=== PATIENT | male | born 1995 | race Caucasian/White ===

== ENCOUNTER 2022-06-02 10:01 | Emergency (ER) | payer OTHER, SELFPAY ==
--- NOTE | ~2022-06-02 | XR_ITS ---
2 views of the right clavicle CLINICAL HISTORY: Fracture FINDINGS: No fracture or dislocation seen. Joint spaces are preserved. Soft tissues are unremarkable. IMPRESSION: No fracture identified. Reviewed, dictated and finalized at location . IMPRESSION: No fracture identified.
--- NOTE | ~2022-06-02 | XR_ITS ---
Right Shoulder Technique: AP and scapular Y views were obtained. Clinical History: Pain Findings: No fracture or dislocation is seen. Osseous alignment is anatomic. The glenohumeral and acr omioclavicular joint spaces are preserved. Soft tissues are unremarkable. Impression: Unremarkable right shoulder radiographs. Reviewed, dictated and finalized at [facility]. Impression: Unremarkable right shoulder radiographs.
[2022-06-02 10:05] VITALS: BP 143/93; PULSE 87; RESP 16; TEMP 36.8; O2SAT 96
--- NOTE | 2022-06-02 10:29 | ED.UPPEXIN ---
HPI - Extremity Injury (Upper) General Chief Complaint: Extremity Injury, Upper Stated Complaint: shoulder/arm pain Time Seen by Provider: 06/02/22 10:05 Source: patient Mode of arrival: ambulatory Limitations: no limitations History of Present Illness HPI narrative: This is a 26-year-old male with no significant past medical history was some rough housing with a nephew last night and inadvertently fell on to his right shoulder, had a few drinks and went to bed, woke up and rolled over and felt pain in his right shoulder. Has limited range of motion there is no numbness or tingling and there is some tenderness in the bicipital area with palpation. complaint: injury to: right Onset (ago): day(s) Other injuries: none Handedness: right Severity: moderate Severity scale (1-10): 7 Relieving factors: immobilization Exacerbating factors: movement of extremity Context: fall Associated symptoms: denies other symptoms Related Data Allergies Allergy/AdvReac Type Severity Reaction Status Date / Time amoxicillin [From Augmentin] Allergy Hives Verified 06/02/22 10:05 clavulanic acid Allergy Hives Verified 06/02/22 10:05 [From Augmentin] Review of Systems Review of Systems: All systems reviewed & are unremarkable except as noted in HPI and below PMFSH Past Medical History Medical History Patient denies medical problems Exam Const: General: healthy appearing Orientation/consciousness: patient oriented x3 Limitations: no limitations HENMT: Head: normal to inspection Eyes: Conjunctivae: conjunctivae normal Chest: Chest palpation & inspection: normal inspection of the chest Resp: Effort & Inspection: normal respiratory effort Auscultation: clear to auscultation bilaterally Cardio: Rate: regular rate Rhythm: regular rhythm GI: GI Palp: Yes Soft to palpation Skin: General skin exam: normal color Rashes: no rashes Wounds: no wounds Neuro: General: patient oriented x3 and moves all extremities Extrem: Other: has limited rated motion the right shoulder with active and passive movement secondary to pain, there is no numbness or tingling and does have tenderness in the bicipital groove palpation of the right shoulder. Psych: Mental Status: mental status grossly normal Affect: normal affect Attitude: cooperative Course Course Emergency Course: Patient received IM Toradol 60mg and pain normal has improved, x-ray reviewed with patient, x-ray showed a mid nondisplaced clavicle fracture. Vital Signs Vital signs: Vital Signs Temperature 36.8 C 06/02/22 10:05 Pulse Rate 87 06/02/22 10:05 Respiratory Rate 16 06/02/22 10:05 Blood Pressure 143/93 H 06/02/22 10:05 Pulse Oximetry 96 06/02/22 10:05 Oxygen Delivery Room Air 06/02/22 10:05 Temperature 36.8 C 06/02/22 10:05 Pulse Rate 87 06/02/22 10:05 Respiratory Rate 16 06/02/22 10:05 Blood Pressure 143/93 H 06/02/22 10:05 Pulse Oximetry 96 06/02/22 10:05 Oxygen Delivery Room Air 06/02/22 10:05 Discharge Plan Discharge Clinical Impression: Fracture of clavicle Qualifiers: Encounter type: initial encounter Clavicle location: unspecified part of clavicle Fracture type: closed Fracture alignment: nondisplaced Laterality: right Qualified Code(s): S42.001A - Fracture of unspecified part of right clavicle, initial encounter for closed fracture Patient Disposition: Home, Self-Care Condition: Stable Instructions: Antibiotic Form, Clavicle Fracture (ED), How to Use a Sling (ED) Additional Instructions: advised to follow-up with primary within 1 week further evaluation and treatment take medicine as prescribed. Prescriptions: New oxycodone-acetaminophen [Percocet] 5-325 mg tablet 1 tablet PO Q6H PRN (Reason: pain) Qty: 14 0RF Follow-up/Referrals: UNKNOWN,DOCTOR [Primary Care Provider] - Time of Disposition: 11:43
[2022-06-02] MEDS: KETOROLAC (*BKC) 60 MG/2 ML VIAL IM (10:37)
[2022-06-02] MEDS: MORPHINE SULFATE (*CRX) 4 MG/ML INJ IM (11:06)
[2022-06-02 11:25] VITALS: BP 136/89; PULSE 62; RESP 16; TEMP 35.9; O2SAT 96
== END 2022-06-02 11:47 | disposition home or self-care (01) ==
PROVIDERS: Emergency Provider Emergency Medicine
DX: S42.024A Nondisplaced fracture of shaft of right clavicle, initial encounter for closed fracture (principal); W19.XXXA Unspecified fall, initial encounter
CPT/HCPCS: 73000; 73030; 96372; 99283; A4565; J1885; J2270

== ENCOUNTER 2022-08-19 13:38 | Emergency (ER) | payer OTHER, SELFPAY ==
[2022-08-19 13:38] VITALS: BP 144/91; PULSE 103; RESP 18; TEMP 35.9; O2SAT 95
--- NOTE | 2022-08-19 14:37 | ED.NAVMDI ---
HPI - Nausea/Vomiting/Diarrhea General Chief complaint: Nausea/Vomiting/Diarrhea Stated complaint: vomiting and shaky Source: patient Mode of arrival: ambulatory Limitations: no limitations History of Present Illness HPI Narrative: 26-year-old male with a history of marijuana use presents to the ER with a 1 day history of -- nausea and vomiting. 2 episodes of vomiting today. No abdominal pain. No fever. Is skip work today and he needs a note for work elicited complaint: nausea and vomiting Pertinent past history: anorexia Onset (ago): day(s) ( started 1 day ago) Description of vomiting: watery Associated nausea: Yes Associated abdominal pain: No Location of pain: none Exacerbating factors: none Relieving factors: none Related Data Allergies Allergy/AdvReac Type Severity Reaction Status Date / Time amoxicillin [From Augmentin] Allergy Hives Verified 08/19/22 13:46 clavulanic acid Allergy Hives Verified 08/19/22 13:46 [From Augmentin] Review of Systems Constitutional: Constitutional: Reports as per HPI and Reports no additional constitutional complaints Eyes: Eyes: Reports as per HPI and Reports no additional eye complaints ENT: Reports system reviewed and no additional complaints, except as documented and Reports as per HPI Cardiovascular: Cardiovascular: Reports as per HPI and Reports no additional cardiovascular complaints Respiratory: Respiratory: Reports as per HPI and Reports no additional respiratory complaints Gastrointestinal: Gastrointestinal: Reports as per HPI, Reports no additional gastrointestinal complaints, Reports nausea and Reports vomiting Genitourinary: Genitourinary: Reports no additional male genitourinary complaints and Reports as per HPI Musculoskeletal: Musculoskeletal: Reports no additional musculoskeletal complaints and Reports as per HPI Integumentary/Breasts: Skin/Breast: Reports system reviewed and no additional complaints, except as docu and Reports as per HPI Neurologic: Reports system reviewed and no additional complaints, except as documented and Reports as per HPI Psychiatric: Psychiatric: Reports no additional psychiatric complaints and Reports as per HPI Endocrine: Endocrine: Reports no additional endocrine complaints and Reports as per HPI Hematologic/Lymphatic: Hematologic/Lymphatic: Reports no additional hematologic/lymphatic complaints and Reports as per HPI Allergic/Immunologic: Allergic/Immunologic: Reports no additional allergic/immunologic complaints and Reports as per HPI PMFSH Past Medical History Medical History Patient denies medical problems Exam Const: General: healthy appearing Nutritional Appearance: well nourished Orientation/consciousness: patient oriented x3 Limitations: no limitations HENMT: Head: normal to inspection Ears: external ears normal Face/Nose/Sinus: Normal external nose present Face and sinus: normal facial exam Mouth: Yes Normal oral and palatal mucosa present Throat: posterior oropharynx normal Eyes: Conjunctivae: conjunctivae normal Cornea: corneas normal Pupils: Equal, round and reactive pupils present EOM: EOMs intact bilaterally Direct Ophthalmoscopy: no photophobia Neck: Neck: normal visual inspection, no lymphadenopathy and no meningeal signs Chest: Chest palpation & inspection: normal inspection of the chest Resp: Effort & Inspection: normal respiratory effort Auscultation: clear to auscultation bilaterally Cardio: Rate: regular rate Rhythm: regular rhythm GI: GI Palp: Yes Soft to palpation Auscultation: normal bowel sounds Other: no tenderness/rigidity/rebound : General: Yes no CVA tenderness Back/Spine/Pelvis: Back: no CVA tenderness Skin: General skin exam: normal color Rashes: no rashes Wounds: no wounds Neuro: General: patient oriented x3, moves all extremities, no meningeal signs, no focal motor deficits and CN's II-XI int
[2022-08-19] MEDS: PROCHLORPERAZINE EDISYLATE 10 MG/2 ML VIAL IM (14:58)
[2022-08-19 15:12] VITALS: BP 144/95; PULSE 88; RESP 18; O2SAT 100
== END 2022-08-19 15:12 | disposition home or self-care (01) ==
PROVIDERS: Emergency Provider Internal Medicine Critical Care Medicine
DX: R11.2 Nausea with vomiting, unspecified (principal)
CPT/HCPCS: 96372; 99283; J0780

== ENCOUNTER 2022-09-09 10:41 | Emergency (ER) | payer OTHER, SELFPAY ==
[2022-09-09 10:43] VITALS: BP 151/94; PULSE 93; RESP 20; TEMP 36.7; O2SAT 95
[2022-09-09 10:46] VITALS: BP 151/84; PULSE 93; RESP 18; TEMP 36.7; O2SAT 100
--- NOTE | 2022-09-09 10:49 | ED.NAVMDI ---
HPI - Nausea/Vomiting/Diarrhea General Chief complaint: Nausea/Vomiting/Diarrhea Stated complaint: hot cold/general weakness Time Seen by Provider: 09/09/22 10:49 Source: patient and RN notes reviewed Mode of arrival: ambulatory Limitations: no limitations History of Present Illness MD elicited complaint: nausea and vomiting Onset (ago): day(s) (3) Description of vomiting: food contents Associated nausea: Yes Associated abdominal pain: No Exacerbating factors: eating Relieving factors: none Associated symptoms: myalgias, fever/chills ( Chills only), headaches and loss of appetite Related Data Home Medications Medication Instructions Recorded Confirmed No Home Medications 09/09/22 09/09/22 Allergies Allergy/AdvReac Type Severity Reaction Status Date / Time amoxicillin [From Augmentin] Allergy Hives Verified 08/19/22 13:46 clavulanic acid Allergy Hives Verified 08/19/22 13:46 [From Augmentin] Review of Systems Review of Systems: All systems reviewed & are unremarkable except as noted in HPI and below PMFSH Past Medical History Medical History Patient denies medical problems Social History Social History (Updated 09/09/22 @ 10:59 by Aravind Drake MD) Smoking status: Current every day smoker Tobacco type: e-cigarettes/vaping Substance use: current Substance use type: marijuana and heroin Exam Const: General: no acute distress, alert and ill appearing acutely Nutritional Appearance: well nourished Orientation/consciousness: patient oriented x3 Limitations: no limitations HENMT: Head: normal to inspection Ears: external ears normal Face/Nose/Sinus: Normal external nose present Face and sinus: normal facial exam Mouth: Yes moist mucous membranes Eyes: Conjunctivae: conjunctivae normal Cornea: corneas normal Pupils: Equal, round and reactive pupils present EOM: EOMs intact bilaterally Neck: Neck: normal visual inspection Resp: Effort & Inspection: normal respiratory effort Auscultation: clear to auscultation bilaterally Cardio: Rate: regular rate Rhythm: regular rhythm GI: GI Palp: Yes Soft to palpation and No Tenderness to palpation present (GI) Auscultation: normal bowel sounds Back/Spine/Pelvis: Cervical Spine: cervical ROM normal Thoracic/Lumbar Spine: thoraco-lumbar ROM normal Skin: General skin exam: normal color Rashes: no rashes Neuro: General: patient oriented x3, moves all extremities, no focal motor deficits and CN's II-XI intact bilaterally Speech: normal speech Gait exam (Neuro): Normal gait present Extrem: General: normal to inspection and no clubbing, cyanosis or edema Psych: Mental Status: mental status grossly normal Affect: normal affect Attitude: cooperative Course Vital Signs Vital signs: Vital Signs Temperature 36.7 C 09/09/22 10:43 Pulse Rate 93 09/09/22 10:43 Respiratory Rate 20 09/09/22 10:43 Blood Pressure 151/94 H 09/09/22 10:43 Pulse Oximetry 95 09/09/22 10:43 Oxygen Delivery Room Air 09/09/22 10:43 Temperature 36.9 C 09/09/22 12:50 Pulse Rate 86 09/09/22 12:50 Respiratory Rate 20 09/09/22 12:50 Blood Pressure 150/87 H 09/09/22 12:50 Pulse Oximetry 94 09/09/22 12:50 Oxygen Delivery Room Air 09/09/22 12:50 MDM - Nausea/Vomiting/Diarrhea Differential Diagnosis Differential diagnosis: Likely gastroenteritis, drug-induced nausea and vomiting, dehydration and other ( UTI, electrolyte abnormality, COVID, influenza, anemia , hepatitis) Lab Data Attestation: I reviewed the patient's lab results. 09/09/22 11:21 09/09/22 11:21 Labs: Lab Results 09/09/22 09/09/22 09/09/22 Range/Units 10:58 11:04 11:21 WBC 9.1 (4.8-10.8) K/mm3 RBC 4.19 L (4.70-6.10) M/mm3 Hgb 13.7 L (14.0-18.0) g/dL Hct 39.4 L (40.0-54.0) % MCV 94.0 (78.0-102.0) fL MCH 32.7 H (27.0-31.0) pg MCHC 34.8 (32
[2022-09-09 11:07] LABS: Appearance Urine Clear (Clear); Bilirubin Urine Negative (Negative); Blood Urine Negative (Negative); Color Urine Yellow (Yellow); Glucose Urine UA Negative (Negative); Ketones Urine Negative (Negative); Leukocyte Esterase Ur Negative LEU/UL (Negative); Nitrate Urine Negative (Negative); Protein Urine Trace (Negative); Specific Grav Ur 1.025 (1.010-1.020); Urobilinogen Urine >=8.0 mg/dL (0.2-1.0)
[2022-09-09 11:12] LABS: Add Urine Microscopic? YES; Bacteria Urine Trace /hpf; Mucus Urine Rare /lpf; RBC Urine 0-2 /hpf (0-2); WBC Urine None seen /hpf (0-3)
[2022-09-09 11:36] LABS: Basophils Absolute Auto 0.03 K/mm3 (0.00-0.10); Basophils Percent Auto 0.3 % (0.0-1.0); Eosinophils Absolute Auto 0.08 K/mm3 (0.02-0.50); Eosinophils Percent Auto 0.9 % (1.0-6.0); Hematocrit 39.4 % (40.0-54.0); Hemoglobin 13.7 g/dL (14.0-18.0); Immature Granulocyte Absolute 0.05 K/mm3 (0.00-0.00); Immature Granulocyte Percent A 0.5 % (0.0-0.0); Lymphocytes Absolute Auto 0.96 K/mm3 (1.10-4.50); Lymphocytes Percent Auto 10.5 % (18.0-42.0); Mean Corpuscular HGB Conc 34.8 g/dL (32.0-36.0); Mean Corpuscular Hemoglobin 32.7 pg (27.0-31.0); Mean Platelet Volume 9.6 fl (8.7-11.0); Monocytes Absolute Auto 1.27 K/mm3 (0.10-0.90); Monocytes Percent Auto 13.9 % (2.0-11.0); Neutrophils Absolute Auto 6.7 K/mm3 (1.7-7.2); Neutrophils Percent Auto 73.9 % (50.0-70.0); Platelet Count Result 207 K/mm3 (150-420); Red Blood Count 4.19 M/mm3 (4.70-6.10); White Blood Count 9.1 K/mm3 (4.8-10.8)
[2022-09-09 11:44] LABS: Influenza A QL RT-PCR Negative (Negative); Influenza B QL RT-PCR Negative (Negative); SARS-CoV-2 RNA PCR Negative (Negative)
[2022-09-09 11:50] LABS: Alanine Aminotransferase 211 U/L (16-63); Albumin Level 3.7 g/dL (3.4-5.0); Alkaline Phosphatase 37 U/L (46-116); Anion Gap 9 mmol/L (8-16); Aspartate Amino Transferase 75 U/L (15-37); Bilirubin,Total 0.9 mg/dL (0.00-1.00); Blood Urea Nitrogen 14 mg/dL (7-18); CRP 7.3 mg/dL (0.0-0.9); Carbon Dioxide 28 mmol/L (21-32); Chloride 94 mmol/L (98-108); Estimated CRCL calculation 136 ml/min; Estimated Glomerular Filt Rate > 60; Glucose 120 mg/dL (70-99); Osmolality Calculated 273 mOsm/kg (285-295); Potassium 3.5 mmol/L (3.5-5.1); Sodium 131 mmol/L (136-145); Total Protein 7.7 g/dL (6.4-8.2)
[2022-09-09 12:22] LABS: Amylase 12 U/L (25-115); Lipase 13 U/L (16-77)
[2022-09-09 12:50] VITALS: BP 150/87; PULSE 86; RESP 20; TEMP 36.9; O2SAT 94
[2022-09-09 13:10] VITALS: BP 148/94; PULSE 92; RESP 20; TEMP 36.6; O2SAT 97
[2022-09-13 13:26] LABS: Hepatitis A Antibody IgM Nonreactive; Hepatitis B Core Antibody Nonreactive (Nonreactive); Hepatitis B Surface Antigen Nonreactive (Nonreactive); Hepatitis C Virus Antibody Reactive
--- NOTE | 2022-09-13 14:53 | PC.NURSE ---
FINAL RESULTS FOR HEPATITIS B CORE ANTIBODY: NON REACTIVE HEPATITIS A ANTIBODY IGM: NON REACTIVE HEPATITIS C VIRUS ANTIBODY: REACTIVE HEPATITIS C SIGNAL TO CUTOFF : PENDING HEPATITIS B SURFACE AG: NON REACTIVE PT IS NOTIFIED OF RESULTS, HE WAS AWARE. DR JOINER'S OFFICE NUMBER PROVIDED TO PT FOR FOLLOW UP. PT REPORTS HE IS AWARE OF THAT HE IS POSITIVE FOR HEP C, HOWEVER IS AN IV DRUG USER AND COULDN'T GET HELP. PT REPORTS HE IS NO LONGER USING IV DRUGS THIS WEEK, AND WOULD LIKE TO GET FOLLOW UP CARE.
[2022-09-14 05:53] LABS: Hepatitis C Viral RNA PCR 237000 IU/mL
[2022-09-20 09:23] LABS: Hepatitis C Additional Testing YES
--- NOTE | 2022-09-20 12:06 | PC.NURSE ---
FINAL RESULTS OF HEPATITIS B CORE ANTIBODY: NON REACTIVE HEPATITIS C VIRAL RNA PCR [id number] IU/ML HEPATITIS C RNA PCR 5.37 IU/ML PER DR PINEDA, PT HAS BEEN NOTIFIED OF HEP C POSITIVE AND GIVEN FOLLOW UP REFERRALS, NO NEED TO CALL WITH VALUES.
== END 2022-09-09 13:15 | disposition home or self-care (01) ==
PROVIDERS: Emergency Provider Emergency Medicine
DX: K52.9 Noninfective gastroenteritis and colitis, unspecified (principal); K75.9 Inflammatory liver disease, unspecified; F17.219 Nicotine dependence, cigarettes, with unspecified nicotine-induced disorders; Z20.822 Contact with and (suspected) exposure to COVID-19
CPT/HCPCS: 36415; 80053; 80074; 81001; 82150; 83690; 85025; 86140; 87522; 87636; 99283